=== PATIENT | male | born 1955 | race Caucasian/White ===

== ENCOUNTER 2018-05-02 07:15 | Emergency (ER) | payer MEDICAID ==
[~2018-05-02] VITALS: Ht 188 cm; Wt 94.0 kg
[2018-05-02 07:18] VITALS: BP 161/90
[2018-05-02] MEDS ORDERED: KETOROLAC 30 MG/1 ML ONE (07:29)
[2018-05-02] MEDS ORDERED: KETOROLAC 30 MG/1 ML IM ONE (07:30)
== END 2018-05-02 10:06 | disposition home or self-care (01) ==
LOC: ED 10:00
DX: M17.9 Osteoarthritis of knee, unspecified (principal)
CPT/HCPCS: 29505; 73564; 93971; 96372; 99284; J1885

== ENCOUNTER → 2018-06-29 | Outpatient (CLI) | payer MEDICAID ==
[~2018-06-29] MED LIST: IBUP-1223 PO
[2018-06-29 10:40] LABS: BASOPHILS # (AUTO) 0.04 x10^3/uL (0-0.1); BASOPHILS % (AUTO) 1 % (0-1); EOSINOPHILS # (AUTO) 0.22 x10^3/uL (0-0.4); EOSINOPHILS % (AUTO) 3 % (1-7); LYMPHOCYTES # (AUTO) 1.71 x10^3/uL (1-3.4); LYMPHOCYTES % (AUTO) 24 % (22-44); MD NO; MEAN CORPUSCULAR HEMOGLOBIN 31.3 pg (27.5-34.5); MEAN CORPUSCULAR HGB CONC 34.7 g/dL (33.2-36.2); MEAN CORPUSCULAR VOLUME 90.3 fL (81-97); MEAN PLATELET VOLUME 7.5 fL (7.4-10.4); MONOCYTES # (AUTO) 0.47 x10^3/uL (0.2-0.8); MONOCYTES % (AUTO) 7 % (2-9); NEUTROPHILS # (AUTO) 4.73 x10^3/uL (1.8-6.8); NEUTROPHILS % (AUTO) 66 % (42-75); PLATELET COUNT 350 x10^3/uL (130-400); RED BLOOD COUNT 5.61 x10^6/uL (4.38-5.82); RED CELL DISTRIBUTION WIDTH 13.6 % (9.4-14.8)
[2018-06-29 10:49] LABS: INTERNATIONAL NORMALIZED RATIO 1.05 (0.93-1.1); PROTHROMBIN TIME 10.9 Seconds (9.6-11.5)
[2018-06-29 10:50] LABS: ANION GAP 7 mmol/L (5-15); CALCIUM 9.4 mg/dL (8.5-10.1); CHLORIDE 103 mmol/L (98-107)
[2018-06-29 10:57] LABS: MICROSCOPIC NOT IND
[2018-06-29 11:00] LABS: CULTURE INDICATED? NO
[2018-06-29 12:19] LABS: HEMOGLOBIN A1C 6.6 % (4.2-6.3)
== END | disposition home or self-care (01) ==
LOC: STAR 09:26
PROVIDERS: ATTEND Orthopaedic Surgery
DX: Z01.818 Encounter for other preprocedural examination (principal); M17.12 Unilateral primary osteoarthritis, left knee; F17.200 Nicotine dependence, unspecified, uncomplicated
CPT/HCPCS: 36415; 80048; 81003; 83036; 85025; 85610; 85730; 87081; 87806; 93005; G0475